=== PATIENT | female | born 1945 | race Caucasian/White ===

== ENCOUNTER 2023-03-17 05:36 | Emergency (ER) | payer BC, MEDICAID, MEDICARE ==
[2023-03-17 06:59] LABS: BASOPHILS ABSOLUTE AUTO 0.03 K/uL (0.00-0.10); BASOPHILS PERCENT AUTO 0.6 % (0.1-1.3); HEMATOCRIT 36.8 % (34.3-46.0); HEMOGLOBIN 12.4 g/dL (11.2-15.5); IMMATURE GRAN PERCENT AUTO 0.4 % (0.0-0.7); LYMPHOCYTES ABSOLUTE AUTO 0.58 K/uL (0.8-3.3); LYMPHOCYTES PERCENT AUTO 11.2 % (11.4-47.7); MEAN CORPUSCULAR HEMOGLOBIN 30.1 pg (31.6-35.5); MEAN CORPUSCULAR HGB CONC 33.7 g/dL (31.6-35.5); MEAN CORPUSCULAR VOLUME 89.3 fL (81.4-99.0); MONOCYTES ABSOLUTE AUTO 0.54 K/uL (0.20-0.90); MONOCYTES PERCENT AUTO 10.4 % (3.3-12.6); NEUTROPHILS PERCENT AUTO 77.4 % (40.0-78.1); PLATELET COUNT,PLT 147 K/uL (130-375); RED BLOOD CELL COUNT 4.12 M/uL (3.77-5.24); WHITE BLOOD CELL COUNT,WBC 5.2 K/uL (3.2-11.0)
[2023-03-17 07:02] LABS: IMMATURE GRAN ABSOLUTE AUTO 0.02 K/uL (0.00-0.23)
[2023-03-17 07:16] LABS: INFLUENZA A NAA NEGATIVE (NEGATIVE); INFLUENZA B NAA NEGATIVE (NEGATIVE); RESPIRATORY SYNCYTIAL VIR NAA NEGATIVE (NEGATIVE)
[2023-03-17 07:18] LABS: CORONAVIRUS COVID-19 NAA POSITIVE (NEGATIVE)
[2023-03-17 07:20] LABS: ALANINE AMINOTRANSFERASE,ALT 71 U/L (12-78); ALBUMIN 3.2 g/dL (3.4-5.0); ALKALINE PHOSPHATASE 101 U/L (46-116); ANION GAP 14.7 mmol/L (5.0-14.0); ASPARTATE AMNIOTRANSFERASE,AST 91 U/L (15-37); BILIRUBIN TOTAL 0.6 mg/dL (0.2-1.0); BLOOD UREA NITROGEN,BUN 24 mg/dL (7-18); C-REACTIVE PROTEIN 2.05 mg/dL (<0.50); CALCIUM 8.5 mg/dL (8.5-10.1); CARBON DIOXIDE,CO2 22 mmol/L (21-32); CHLORIDE,CL 105 mmol/L (100-108); CREATININE 1.5 mg/dL (0.6-1.0); EST CRCL DRUG DOSING (CG) 35.04 mL/min; ESTIMATED GFR 36 mL/min (>60); GLUCOSE RANDOM 113 mg/dL (74-106); POTASSIUM,K 3.7 mmol/L (3.6-5.2); PROTEIN TOTAL,TP 6.4 g/dL (6.4-8.2); SODIUM,NA 138 mmol/L (140-148)
[2023-03-17 07:24] LABS: LACTIC ACID 0.8 mmol/L (0.4-2.0)
[2023-03-17 07:38] LABS: APPEARANCE,URINE CLEAR (CLEAR); BILIRUBIN,URINE NEGATIVE (NEGATIVE); COLOR,URINE YELLOW (YELLOW); GLUCOSE,URINE NEGATIVE (NEGATIVE); KETONES,URINE NEGATIVE (NEGATIVE); LEUKOCYTE ESTERASE,URINE SMALL (NEGATIVE); NITRITE,URINE NEGATIVE (NEGATIVE); OCCULT BLOOD,URINE MODERATE (NEGATIVE); PH,URINE 6.5 (5.0-8.0); PROTEIN,URINE TRACE mg/dL (NEGATIVE); UROBILINOGEN,URINE 0.2 EU/dL (0.2-1.0)
[2023-03-17 07:43] LABS: AMORPHOUS SEDIMENT,URINE NOT SEEN; BACTERIA,URINE FEW; EPITHELIAL CELLS,URINE MODERATE; MUCUS,URINE MANY; WBC,URINE 0-5 (0-5)
== END 2023-03-17 10:46 ==
LOC: JP.ED 05:36
DX: U07.1 COVID-19 (principal); S00.83XA Contusion of other part of head, initial encounter; Z88.5 Allergy status to narcotic agent; W01.0XXA Fall on same level from slipping, tripping and stumbling without subsequent striking against object, initial encounter
CPT/HCPCS: 0241U; 36415; 70450; 80053; 81001; 83605; 85025; 86140; 99284

== ENCOUNTER 2024-02-05 11:54 | Emergency (ER) | payer MEDICARE ==
[2024-02-05 12:33] LABS: BASOPHILS ABSOLUTE AUTO 0.05 K/uL (0.00-0.10); BASOPHILS PERCENT AUTO 0.7 % (0.1-1.3); EOSINOPHILS ABSOLUTE AUTO 0.24 K/uL (0.00-0.40); EOSINOPHILS PERCENT AUTO 3.4 % (0.0-5.4); HEMATOCRIT 39.4 % (34.3-46.0); HEMOGLOBIN 13.2 g/dL (11.2-15.5); IMMATURE GRAN ABSOLUTE AUTO 0.01 K/uL (0.00-0.23); IMMATURE GRAN PERCENT AUTO 0.1 % (0.0-0.7); LYMPHOCYTES PERCENT AUTO 20.1 % (11.4-47.7); MEAN CORPUSCULAR HEMOGLOBIN 31.2 pg (31.6-35.5); MEAN CORPUSCULAR HGB CONC 33.5 g/dL (31.6-35.5); MEAN CORPUSCULAR VOLUME 93.1 fL (81.4-99.0); MONOCYTES ABSOLUTE AUTO 0.69 K/uL (0.20-0.90); MONOCYTES PERCENT AUTO 9.9 % (3.3-12.6); NEUTROPHILS ABSOLUTE AUTO 4.57 K/uL (1.0-7.6); NEUTROPHILS PERCENT AUTO 65.8 % (40.0-78.1); PLATELET COUNT,PLT 204 K/uL (130-375); RED BLOOD CELL COUNT 4.23 M/uL (3.77-5.24)
[2024-02-05] MEDS: Sodium Chloride 0.9% 500 ML IV ONE (12:49)
[2024-02-05 12:52] LABS: A/G RATIO 0.9 (1.2-2.2); ALANINE AMINOTRANSFERASE,ALT 27 U/L (12-78); ALKALINE PHOSPHATASE 90 U/L (46-116); ANION GAP 9.6 mmol/L (5.0-14.0); ASPARTATE AMNIOTRANSFERASE,AST 20 U/L (15-37); BILIRUBIN TOTAL 0.4 mg/dL (0.2-1.0); BLOOD UREA NITROGEN,BUN 31 mg/dL (7-18); CALCIUM 9.2 mg/dL (8.5-10.1); CARBON DIOXIDE,CO2 25 mmol/L (21-32); CHLORIDE,CL 105 mmol/L (100-108); CREATININE 1.7 mg/dL (0.6-1.0); ESTIMATED GFR 31 mL/min (>60); GLUCOSE RANDOM 89 mg/dL (74-106); POTASSIUM,K 4.3 mmol/L (3.6-5.2); PROTEIN TOTAL,TP 6.5 g/dL (6.4-8.2); SODIUM,NA 140 mmol/L (140-148); TROPONIN I HIGH SENSITIVITY 14.1 pg/mL (<=60.3)
[2024-02-05] MEDS ORDERED: Metoprolol Tartrate 5 MG in Sodium Chloride 0.9% 50 ML IV ONE (12:56)
[2024-02-05 13:04] LABS: APPEARANCE,URINE CLEAR (CLEAR); BILIRUBIN,URINE NEGATIVE (NEGATIVE); COLOR,URINE YELLOW (YELLOW); GLUCOSE,URINE NEGATIVE (NEGATIVE); KETONES,URINE NEGATIVE (NEGATIVE); LEUKOCYTE ESTERASE,URINE NEGATIVE (NEGATIVE); NITRITE,URINE NEGATIVE (NEGATIVE); OCCULT BLOOD,URINE TRACE-LYSED (NEGATIVE); PROTEIN,URINE NEGATIVE (NEGATIVE); UROBILINOGEN,URINE 0.2 EU/dL (0.2-1.0)
[2024-02-05 13:06] LABS: INR 1.1; PROTHROMBIN TIME 10.9 sec (9.2-10.6)
[2024-02-05] MEDS: Metoprolol Tartrate 5 MG/5 ML SDV IV ONE (13:09)
[2024-02-05 13:10] LABS: AMORPHOUS SEDIMENT,URINE RARE; BACTERIA,URINE FEW; EPITHELIAL CELLS,URINE RARE; MUCUS,URINE RARE; RBC,URINE 0-5 (0-5); WBC,URINE 0-5 (0-5)
[2024-02-05] MEDS: Iopamidol 755 Mg/ML 100 ML Bottle IV ONE (13:56)
[2024-02-05] MEDS: Sodium Chloride 0.9% 120 ML IV SCH (13:56)
[2024-02-05] MEDS ORDERED: Heparin Sodium 5,000 Units/ML Vial IV ONE (15:15)
[2024-02-05] MEDS: Heparin Sodium/D5W 25,000 UNITS/500 ML BAG IV SCH (15:24)
[2024-02-05] MEDS: Heparin Sodium 5,000 Units/ML Vial IV ONE (15:24)
[2024-02-05] MEDS: Sodium Chloride 0.9% 1,000 ML IV SCH (15:33)
== END 2024-02-05 16:42 ==
LOC: JP.ED 11:54
DX: I47.10 Supraventricular tachycardia, unspecified (principal); I26.99 Other pulmonary embolism without acute cor pulmonale; N28.9 Disorder of kidney and ureter, unspecified; K21.9 Gastro-esophageal reflux disease without esophagitis; E03.9 Hypothyroidism, unspecified; Z88.0 Allergy status to penicillin; Z88.5 Allergy status to narcotic agent; Z79.890 Hormone replacement therapy; Z79.899 Other long term (current) drug therapy
CPT/HCPCS: 36415; 70450; 70496; 70498; 71275; 80053; 81001; 82947; 84443; 84484; 85025; 85610; 85730; 96361; 96365; 96375; 99285; J1644; J3490; J7030; J7050; Q9967; 93010